=== PATIENT | female | born 1970 | race Asian ===

== ENCOUNTER → 2020-10-27 08:41 | Outpatient (BNVA) | payer OTHER, SELFPAY | PROVIDERS: Visit Provider Internal Medicine Endocrinology, Diabetes & Metabolism | DX: C73 Malignant neoplasm of thyroid gland (principal); E89.0 Postprocedural hypothyroidism; E55.9 Vitamin D deficiency, unspecified | CPT/HCPCS: 99212 ==

== ENCOUNTER 2020-10-27 10:01 | Outpatient (REF) | payer OTHER, SELFPAY ==
[2020-10-27 14:09] LABS: Free T4 (Free Thyroxine) 1.29 ng/dL (0.71-1.85); Thyroid Stimulating Hormone 0.17 uIU/mL (0.32-4.0); Vitamin D 25-OH Total 58.8 ng/mL (>30)
[2020-10-30 05:47] LABS: Thyroglobulin Antibody <1 IU/mL (<=1); Thyroglobulin Level 0.8 ng/mL
== END 2020-10-27 10:02 | disposition home or self-care (01) ==
LOC: HO.10HDL 10:01
PROVIDERS: Visit Provider Internal Medicine Endocrinology, Diabetes & Metabolism
DX: E55.9 Vitamin D deficiency, unspecified (principal); C73 Malignant neoplasm of thyroid gland
CPT/HCPCS: 36415; 82306; 84432; 84439; 84443; 86800

== ENCOUNTER 2020-11-06 15:00 | Outpatient (REF) | payer OTHER, SELFPAY ==
--- NOTE | ~2020-11-06 | US_ITS ---
EXAMINATION: US SOFT TISSUE NECK CLINICAL INFORMATION: Vitamin D deficiency, unspecified. History of papillary thyroid carcinoma with recurrence. COMPARISON: Ultrasound soft tissue neck dated 08/01/2018 and 10/24/2017. TECHNIQUE: Ultrasound of the neck soft tissues is performed with high- frequency chin-scale imaging and color Doppler. FINDINGS: THYROID BED: Prior thyroidectomy. No residual thyroid tissue demonstrated in the thyroid bed. No cystic or solid nodules demonstrated in the thyroid bed. RIGHT NECK SOFT TISSUES: Scattered architecturally normal nodes are present. The nodes show normal fatty hilus, normal cortical thickness, and no cystic change or calcification. No abnormal color flow. There is one right cervical lymph node.: Level 5B: 0.6 x 0.3 x 0.6 cm. New. Normal paulette architecture. LEFT NECK SOFT TISSUES: Scattered architecturally normal nodes are present. The nodes show normal fatty hilus, normal cortical thickness, and no cystic change or calcification. No abnormal color flow. There are 2 left cervical lymph nodes.: Level 3: 1 x 0.4 x 0.8 cm. This measured 1 x 0.4 x 0.6 cm December 2019. Normal paulette architecture. Level 3: 0.6 x 0.3 x 0.5 cm. New. Normal paulette architecture. US/US soft tiss head and/or neck IMPRESSION: Small bilateral cervical lymph nodes.
== END 2020-11-06 15:01 | disposition home or self-care (01) ==
LOC: HO.US 15:00
PROVIDERS: Visit Provider Internal Medicine Endocrinology, Diabetes & Metabolism
DX: C73 Malignant neoplasm of thyroid gland (principal); E89.0 Postprocedural hypothyroidism; E55.9 Vitamin D deficiency, unspecified
CPT/HCPCS: 76536

== ENCOUNTER → 2021-11-24 13:44 | Outpatient (BNVA) | payer OTHER, SELFPAY | PROVIDERS: Visit Provider Internal Medicine Endocrinology, Diabetes & Metabolism | DX: C73 Malignant neoplasm of thyroid gland (principal) | CPT/HCPCS: 99212 ==

== ENCOUNTER 2022-01-26 13:57 | Outpatient (REF) | payer OTHER, SELFPAY ==
--- NOTE | ~2022-01-26 | US_ITS ---
EXAMINATION: US SOFT TISSUE NECK CLINICAL INFORMATION: Nontoxic multinodular goiter. COMPARISON: None TECHNIQUE: Ultrasound of the neck soft tissues is performed with high- frequency chin-scale imaging and color Doppler. FINDINGS: THYROID BED: Prior thyroidectomy. No residual thyroid tissue demonstrated in the thyroid bed. No cystic or solid nodules demonstrated in the thyroid bed. RIGHT NECK SOFT TISSUES: Scattered architecturally normal nodes are present. The nodes show normal fatty hilus, normal cortical thickness, and no cystic change or calcification. No abnormal color flow. The largest nodes are as follows: Level 1B: 0.4 x 0.4 x 0.7 cm. Normal paulette architecture. Level 5A: 0.7 x 0.2 x 0.4 cm. There is no definite fatty hilum seen, but otherwise normal morphology. This is similar to previous. LEFT NECK SOFT TISSUES: Scattered architecturally normal nodes are present. The nodes show normal fatty hilus, normal cortical thickness, and no cystic change or calcification. No abnormal color flow. The largest nodes are as follows: Level 1B: 1.2 x 0.5 x 0.9 cm. Normal paulette architecture. Level 3: 1 x 0.5 x 0.6 cm. There is no definite fatty hilum seen. This is similar to the previous. US/US soft tiss head and/or neck IMPRESSION: 1. Multiple small bilateral cervical lymph nodes are identified. None of these are significantly concerning in appearance. 2. If clinically indicated further evaluation of the neck soft tissues and nodes may be performed with CT soft tissue neck with intravenous contrast.
[2022-01-26 16:17] LABS: Free T4 (Free Thyroxine) 1.58 ng/dL (0.71-1.85); Thyroid Stimulating Hormone < 0.01 uIU/mL (0.32-4.0)
[2022-01-28 05:43] LABS: Triiodothyronine T3 Free 4.4 pg/mL (2.3-4.2)
[2022-01-30 06:47] LABS: Thyroglobulin Antibody <1 IU/mL (<=1); Thyroglobulin Level 0.6 ng/mL
== END 2022-01-26 13:58 | disposition home or self-care (01) ==
LOC: HO.US 13:57
PROVIDERS: Visit Provider Internal Medicine Endocrinology, Diabetes & Metabolism
DX: E04.2 Nontoxic multinodular goiter (principal); C73 Malignant neoplasm of thyroid gland
CPT/HCPCS: 36415; 76536; 84432; 84439; 84443; 84481; 86800

== ENCOUNTER → 2022-06-15 13:58 | Outpatient (BNVA) | payer OTHER, SELFPAY | PROVIDERS: Visit Provider Internal Medicine Endocrinology, Diabetes & Metabolism | DX: C73 Malignant neoplasm of thyroid gland (principal); E89.0 Postprocedural hypothyroidism | CPT/HCPCS: 99212 ==

== ENCOUNTER 2023-04-14 13:47 | Outpatient (AMB) | payer OTHER, SELFPAY ==
--- NOTE | 2023-04-14 13:49 | MHC.OFFVIS ---
Intake Vital Signs 04/14/23 13:53 Height 5 ft 3 in Weight 156 lb 4.924 oz BMI 27.7 BP 110/82 Blood Pressure Location Lt brachial Position Sitting Pulse 102 H Pulse Source Pulse Oximeter Pulse Oximetry (%) 97 Intake Visit Reasons: Follow-up PTC Intake Note: Patient present for primary thyroid cancer follow up visit. Financial Sales Manager Required: Yes Financial Sales Manager Language: Urdu Financial Sales Manager Name: refusal form Promotions Team Leader: Promotions Team Leader Present Accompanied by: daughter Allergies No Known Allergies Allergy (Verified 04/14/23 13:54) Medication List - Last Reconciled 04/14/23 by Hansel Christian MD cholecalciferol (vitamin D3) 125 mcg PO DAILY levothyroxine 100 mcg PO DAILY HPI HPI Comments History of Present Illness Details 52 yo Urdu female today for fup visit, for recurrent PTC management She is feeling good. She denies palpitations, insomnia, anxiety. She denies diarrhea. She has been taking levothyroxine 100 ug Patient reports been 100% adherent with her levothyroxine. Has been taking vitamin-D every day as advised. 02/28/2019 TSH 113.5 (Thyrogen stimulated TG 4.1 ng per mL day 3 after thyrogen. Peak TG on 03/02 3.5 ng per mL, TSH 10.59 mIU/mL per Whole body scan 03/02/19 results were consistent with no evidence of iodine avid metastatic disease. No take in the neck either. Patient is present today with her daughter Lashay which is translating for us, the patient is not very fluent in Frisian. She was diagnosed with PTC on 2004 had total thyroidectomy on 2005, with M[facility]AND, she had second surgery on 2009 or and last surgery on 2013, she had first surgery by Dr Medina, second and [address] Lewis , She required bilateral extensive neck dissection, not clear which surgery . Denies palpitations, + tremors, denies diarrhea, denies nervousness, insomnia, weight stable, regular periods, (tubal ligation for contraception) rarely heat intolerance, sweating,. prior Records from Dr Lewis office received, as per his notes she had last surgery on 10/03/13 surgery was central compartment and left lateral neck selective dissection [address] were positive for cancer, this was consider recurrance, I dont have the documentation of initial and second surgery yet, still pending record from Dr Pat Welch's office. Prior records from [facility] reviewed, Patient had initial surgery on 11/08/05 followed by MCCLELLAND 102 mCi On 12/08/05 . She had stage 1 PTC multifocal largest tumor was 1.6 x 1.5 x 1.2 cm (T1, N1b, M0), she had recurrance in neck LN on 2008, had positive LN on level II and III. She had third neck dissection on 10/03/13, she had elveated TG on 06/01/13 TG 17 with negative antibodies, after TG went down to 3 with negative antibodies on 05/06/14. On 10/27/15 TG was 0.9 , antibodies negtive , TSH <0.02 miu/ml. Neck US 10/24/17 Status post bilateral thyroidectomy. There are 2 normal-sized lymph nodes in the left neck, submandibular region, measuring 0.9 x 0.4 x 0.6 cm and 0.6 x 0.3 x 0.5 cm. Neck US 08/01/18 No residual thyroid tissue is seen. There are some small lymph nodes present, 1 in the left submandibular area measuring 7 x 4 x 7 mm (previously 6 x 3 x 5 mm) and 1 in the left parotid region measuring 8 x 6 x 7 mm. It is a bit difficult to compare the current study with the previous exam as it does not appear that the parotid area was interrogated but 2 lymph nodes were measured at the time of the prior exam with the second node measuring 9 x 4 x 6 mm. No other nodes or masses are seen. NECK US 12/11/2019 RIGHT NECK SOFT TISSUES: Right neck soft tissues and nodes are as follows: Level 2: 0.8 x 0.4 x 0.6. Normal paulette architecture. LEFT NECK SOFT TISSUES: Left neck soft tissues and nodes are as follows: Level 3: 1 x 0.4 x 0.6. Normal paulette architecture. The previously identified lymph nodes in the left submandibular and parotid regions on July 2018 are not appreciated on the current exam. Laboratory Tests 11/21/19 11/21/19 13:54 13:54 25-OH Vitamin D To eric 61.9 Free T4 1.27 Thyroglobulin 0.9 H TSH 3rd Generation 0.[address] Valarie Pate at [facility] we did neck ultrasound and did not see an abnormal lymph nodes and suggested following thyroglobulin every 6 months [facility] Medical History (Updated 11/20/21 @ 10:36 by Sofia Faustin [facility]) Vitamin D deficiency Post-surgical hypothyroidism Primary thyroid cancer Surgical History (Updated 06/15/22 @ 14:13 by Gema Navas Neelima) H/O radioactive iodine thyroid ablation Hx of total thyroidectomy History of radical neck dissection Family History Father No problems noted. Mother No problems noted. Paternal Grandmother Thyroid cancer Social History Household Members: Family and Children Alcohol intake: current Alcohol intake frequency: does not drink Patient Tobacco Use Status: Never used Tobacco Physical Exam Const Other: There is a healed scar status post thyroidectomy. There is no cervical adenopathy palpated Assessment & Plan Assessment & Plan (1) Primary thyroid cancer: Code(s): C73 - Malignant neoplasm of thyroid gland Plan: This is a 52-year-old female with a history of metastatic papillary thyroid cancer status post total thyroidectomy and subsequent bilateral neck dissection with persistent thyroglobulin which has remained somewhat stable. She is currently on levothyroxine 100 mcg . She appears to be clinically euthyroid. Plan is to recheck TSH, free T4, free T3 adjust levothyroxine . The goal would be to keep the TSH between 0.1 and 0.4. I had discussion with the patient and her son and we decided to make a referral to Dr. Pate in [place] in light of the persistent thyroglobulin Orders: Orders Free T4 (Free Thyroxine) Today C73 - Malignant neoplasm of thyroid gland Thyroid Stimulating Hormone Today C73 - Malignant neoplasm of thyroid gland Thyroglobulin Tumor Marker Today C73 - Malignant neoplasm of thyroid gland Coding Level of Care Code Est Pt Level 3 (11882) Diagnoses Primary thyroid cancer C73
[2023-04-14 13:53] VITALS: BP 110/82; PULSE 102; O2SAT 97; BMI 27.7
== END 2023-04-14 14:05 | disposition home or self-care (01) ==
PROVIDERS: Visit Provider Internal Medicine Endocrinology, Diabetes & Metabolism
DX: C73 Malignant neoplasm of thyroid gland (principal)
CPT/HCPCS: 99213

== ENCOUNTER 2023-04-14 13:47 | Outpatient (REF) | payer OTHER, SELFPAY ==
[2023-04-14 15:17] LABS: Thyroid Stimulating Hormone 0.47 uIU/mL (0.32-4.0)
[2023-04-17 04:33] LABS: Thyroglobulin Antibody <1 IU/mL (<=1); Thyroglobulin Level 0.6 ng/mL
== END 2023-04-14 13:48 | disposition home or self-care (01) ==
LOC: HO.LAB 13:47
PROVIDERS: Visit Provider Internal Medicine Endocrinology, Diabetes & Metabolism
DX: C73 Malignant neoplasm of thyroid gland (principal); E89.0 Postprocedural hypothyroidism; Z79.899 Other long term (current) drug therapy
CPT/HCPCS: 36415; 84432; 84439; 84443; 86800; 99212

== ENCOUNTER 2023-07-14 07:51 | Outpatient (REF) | payer OTHER, SELFPAY ==
[2023-07-14 09:44] LABS: Free T4 (Free Thyroxine) 0.89 ng/dL (0.71-1.85); Thyroid Stimulating Hormone 1.68 uIU/mL (0.32-4.0)
[2023-07-20 05:39] LABS: Thyroglobulin Antibody <1 IU/mL (<=1); Thyroglobulin Level 0.3 ng/mL
== END 2023-07-14 07:52 | disposition home or self-care (01) ==
LOC: HO.LAB 07:51
PROVIDERS: Visit Provider Internal Medicine Endocrinology, Diabetes & Metabolism
DX: C73 Malignant neoplasm of thyroid gland (principal); Z79.899 Other long term (current) drug therapy
CPT/HCPCS: 36415; 84432; 84439; 84443; 86800; 99212

== ENCOUNTER 2023-07-14 07:51 | Outpatient (AMB) | payer OTHER, SELFPAY ==
--- NOTE | 2023-07-14 07:53 | MHC.OFFVIS ---
Intake Vital Signs 07/14/23 07:56 Height 5 ft 3 in Weight 158 lb 1.143 oz BMI 28.0 BP 134/80 Blood Pressure Location Lt brachial Position Sitting Pulse 89 Pulse Source Pulse Oximeter Intake Visit Reasons: f/u thyroid cancer/CONFIRMED Intake Note: Patient present for Thyroid follow up visit. Housekeeping Aid Required: No Accompanied by: Self / Same As Patient Allergies No Known Allergies Allergy (Verified 07/14/23 07:59) Medication List - Last Reconciled 07/14/23 by Hansel Chrsitian MD cholecalciferol (vitamin D3) 125 mcg PO DAILY levothyroxine 100 mcg PO DAILY HPI HPI Comments History of Present Illness Details 53 yo Colombian female today for fup visit, for recurrent PTC management She is feeling good. She denies palpitations, insomnia, anxiety. She denies diarrhea. She has been taking levothyroxine 100 ug Patient reports been 100% adherent with her levothyroxine. Has been taking vitamin-D every day as advised. 02/28/2019 TSH 113.5 (Thyrogen stimulated TG 4.1 ng per mL day 3 after thyrogen. Peak TG on 03/02 3.5 ng per mL, TSH 10.59 mIU/mL per Whole body scan 03/02/19 results were consistent with no evidence of iodine avid metastatic disease. No take in the neck either. Patient is present today with her daughter Lashay which is translating for us, the patient is not very fluent in Urdu. She was diagnosed with PTC on 2004 had total thyroidectomy on 2005, with [facility], she had second surgery on 2009 or and last surgery on 2013, she had first surgery by Dr Medina, second and [address] Lewis , She required bilateral extensive neck dissection, not clear which surgery . Denies palpitations, + tremors, denies diarrhea, denies nervousness, insomnia, weight stable, regular periods, (tubal ligation for contraception) rarely heat intolerance, sweating,. prior Records from Dr Lewis office received, as per his notes she had last surgery on 10/03/13 surgery was central compartment and left lateral neck selective dissection [address] were positive for cancer, this was consider recurrance, I dont have the documentation of initial and second surgery yet, still pending record from Dr Pat Welch's office. Prior records from [facility] reviewed, Patient had initial surgery on 11/08/05 followed by MCCLELLAND 102 mCi On 12/08/05 . She had stage 1 PTC multifocal largest tumor was 1.6 x 1.5 x 1.2 cm (T1, N1b, M0), she had recurrance in neck LN on 2008, had positive LN on level II and III. She had third neck dissection on 10/03/13, she had elveated TG on 06/01/13 TG 17 with negative antibodies, after TG went down to 3 with negative antibodies on 05/06/14. On 10/27/15 TG was 0.9 , antibodies negtive , TSH <0.02 miu/ml. Neck US 10/24/17 Status post bilateral thyroidectomy. There are 2 normal-sized lymph nodes in the left neck, submandibular region, measuring 0.9 x 0.4 x 0.6 cm and 0.6 x 0.3 x 0.5 cm. Neck US 08/01/18 No residual thyroid tissue is seen. There are some small lymph nodes present, 1 in the left submandibular area measuring 7 x 4 x 7 mm (previously 6 x 3 x 5 mm) and 1 in the left parotid region measuring 8 x 6 x 7 mm. It is a bit difficult to compare the current study with the previous exam as it does not appear that the parotid area was interrogated but 2 lymph nodes were measured at the time of the prior exam with the second node measuring 9 x 4 x 6 mm. No other nodes or masses are seen. NECK US 12/11/2019 RIGHT NECK SOFT TISSUES: Right neck soft tissues and nodes are as follows: Level 2: 0.8 x 0.4 x 0.6. Normal paulette architecture. LEFT NECK SOFT TISSUES: Left neck soft tissues and nodes are as follows: Level 3: 1 x 0.4 x 0.6. Normal paulette architecture. The previously identified lymph nodes in the left submandibular and parotid regions on July 2018 are not appreciated on the current exam. Laboratory Tests 11/21/19 11/21/19 13:54 13:54 25-OH Vitamin D To eric 61.9 Free T4 1.27 Thyroglobulin 0.9 H TSH 3rd Generation 0.[address] Valarie Pate at [facility] we did neck ultrasound and did not see an abnormal lymph nodes and suggested following thyroglobulin every 6 months [facility] Medical History (Updated 11/20/21 @ 10:36 by Sofia Faustin [facility]) Vitamin D deficiency Post-surgical hypothyroidism Primary thyroid cancer Surgical History H/O radioactive iodine thyroid ablation Hx of total thyroidectomy History of radical neck dissection Family History Father No problems noted. Mother No problems noted. Paternal Grandmother Thyroid cancer Social History Household Members: Family and Children Alcohol intake: current Alcohol intake frequency: does not drink Patient Tobacco Use Status: Never used Tobacco Physical Exam Vital Signs: Last Vital Signs Pulse 89 07/14/23 07:56 BP 134/80 07/14/23 07:56 BMI result Body Mass Index 28.0 Assessment & Plan Assessment & Plan (1) Primary thyroid cancer: Code(s): C73 - Malignant neoplasm of thyroid gland Plan: This is a 53-year-old female with a history of metastatic papillary thyroid cancer status post total thyroidectomy and subsequent bilateral neck dissection with persistent thyroglobulin which has remained somewhat stable. She is currently on levothyroxine 100 mcg . She appears to be clinically euthyroid. Plan is to recheck TSH, free T4, adjust levothyroxine . We will also recheck thyroglobulin. As well as thyroglobulin antibodies. Would keep TSH in the low normal range. Will have patient follow up with Dr. Pate Orders: Orders Thyroglobulin Tumor Marker Today C73 - Malignant neoplasm of thyroid gland Coding Level of Care Code Est Pt Level 3 (23929) Diagnoses Primary thyroid cancer C73
[2023-07-14 07:56] VITALS: BP 134/80; PULSE 89; BMI 28.0
== END 2023-07-14 08:10 | disposition home or self-care (01) ==
PROVIDERS: PCP Internal Medicine; Visit Provider Internal Medicine Endocrinology, Diabetes & Metabolism
DX: C73 Malignant neoplasm of thyroid gland (principal)
CPT/HCPCS: 99213

== ENCOUNTER 2024-07-31 14:43 | Outpatient (AMB) | payer OTHER, SELFPAY ==
--- NOTE | 2024-07-31 14:54 | A.OFFVIS_ITS ---
Vital Signs 07/31/24 14:55 Height 5 ft 3 in Weight 163 lb 12.855 oz BMI 29.0 BP 106/62 Blood Pressure Location Rt brachial Position Sitting Pulse 82 Pulse Source Pulse Oximeter Intake Visit Reasons: Thyroid cancer Intake Note: Patient present today for Thyroid Cancer follow up. Publications Sales Representative Required: Yes Publications Sales Representative Language: Kyrgyz Publications Sales Representative Services: Publications Sales Representative Offered & Declined Publications Sales Representative Name: Son will interpret Information Interpreted: non-clinical & clinical Accompanied by: Son Allergies No Known Allergies Allergy (Verified 07/31/24 14:58) Medication List - Last Reconciled 07/31/24 by Hansel Christian MD cholecalciferol (vitamin D3) 125 mcg PO DAILY levothyroxine 100 mcg PO DAILY HPI Comments Details: 54 yo Kyrgy[place] female today for fup visit, for recurrent PTC management She is feeling good. She denies palpitations, insomnia, anxiety. She denies diarrhea. She has been taking levothyroxine 100 ug Patient reports been 100% adherent with her levothyroxine. Has been taking vitamin-D every day as advised. 02/28/2019 TSH 113.5 (Thyrogen stimulated TG 4.1 ng per mL day 3 after thyrogen. Peak TG on 03/02 3.5 ng per mL, TSH 10.59 mIU/mL per Whole body scan 03/02/19 results were consistent with no evidence of iodine avid metastatic disease. No take in the neck either. Patient is present today with her daughter Lashay which is translating for us, the patient is not very fluent in Bengali. She was diagnosed with PTC on 2004 had total thyroidectomy on 2005, with [facility]AND, she had second surgery on 2009 or and last surgery on 2013, she had first surgery by Dr Medina, second and [address] Lewis , She required bilateral extensive neck dissection, not clear which surgery . Denies palpitations, + tremors, denies diarrhea, denies nervousness, insomnia, weight stable, regular periods, (tubal ligation for contraception) rarely heat intolerance, sweating,. prior Records from Dr Lewis office received, as per his notes she had last surgery on 10/03/13 surgery was central compartment and left lateral neck selective dissection [address] were positive for cancer, this was consider recurrance, I dont have the documentation of initial and second surgery yet, still pending record from Dr Pat Welch's office. Prior records from [facility] reviewed, Patient had initial surgery on 11/08/05 followed by MCCLELLAND 102 mCi On 12/08/05 . She had stage 1 PTC multifocal largest tumor was 1.6 x 1.5 x 1.2 cm (T1, N1b, M0), she had recurrance in neck LN on 2008, had positive LN on level II and III. She had third neck dissection on 10/03/13, she had elveated TG on 06/01/13 TG 17 with negative antibodies, after TG went down to 3 with negative antibodies on 05/06/14. On 10/27/15 TG was 0.9 , antibodies negtive , TSH <0.02 miu/ml. Neck US 10/24/17 Status post bilateral thyroidectomy. There are 2 normal-sized lymph nodes in the left neck, submandibular region, measuring 0.9 x 0.4 x 0.6 cm and 0.6 x 0.3 x 0.5 cm. Neck US 08/01/18 No residual thyroid tissue is seen. There are some small lymph nodes present, 1 in the left submandibular area measuring 7 x 4 x 7 mm (previously 6 x 3 x 5 mm) and 1 in the left parotid region measuring 8 x 6 x 7 mm. It is a bit difficult to compare the current study with the previous exam as it does not appear that the parotid area was interrogated but 2 lymph nodes were measured at the time of the prior exam with the second node measuring 9 x 4 x 6 mm. No other nodes or masses are seen. NECK US 12/11/2019 RIGHT NECK SOFT TISSUES: Right neck soft tissues and nodes are as follows: Level 2: 0.8 x 0.4 x 0.6. Normal paulette architecture. LEFT NECK SOFT TISSUES: Left neck soft tissues and nodes are as follows: Level 3: 1 x 0.4 x 0.6. Normal paulette architecture. The previously identified lymph nodes in the left submandibular and parotid regions on July 2018 are not appreciated on the current exam. Laboratory Tests 11/21/19 11/21/19 13:54 13:54 25-OH Vitamin D Total 61.9 Free T4 1.27 Thyroglobulin 0.9 H TSH 3rd Generation 0.[address] Valarie Pate at [facility] we did neck ultrasound and did not see an abnormal lymph nodes and suggested following thyroglobulin every 6 months. Currently on levothyroxine 100 mcg q.d. [facility] Medical History (Updated 11/20/21 @ 10:36 by Sofia Faustin [facility]) Vitamin D deficiency Post-surgical hypothyroidism Primary thyroid cancer Surgical History H/O radioactive iodine thyroid ablation Hx of total thyroidectomy History of radical neck dissection Family History Father No problems noted. Mother No problems noted. Paternal Grandmother Thyroid cancer Social History Household Members: Family and Children Alcohol intake: current Alcohol intake frequency: does not drink Patient Tobacco Use Status: Never used Tobacco Physical Exam Vital Signs: Last Vital Signs Pulse 82 07/31/24 14:55 BP 106/62 07/31/24 14:55 BMI result Body Mass Index 29.0 Const Other: There is a healed scar status post thyroidectomy. There is no cervical adenopathy palpated Assessment & Plan Assessment & Plan (1) Primary thyroid cancer: Code(s): C73 - Malignant neoplasm of thyroid gland Category: Medical Plan: This is a 53-year-old female with a history of metastatic papillary thyroid cancer status post total thyroidectomy and subsequent bilateral neck dissection with persistent thyroglobulin which has remained somewhat stable. She is currently on levothyroxine 100 mcg . She appears to be clinically and biochemically euthyroid. Plan is to continue the current management. We will have patient follow up with Dr. Brown an mountain bike guide in our practice who has expertise in neck ultrasound Medications: Refilled cholecalciferol (vitamin D3) 125 mcg PO DAILY 30 caps 11RF E55.9 - Vitamin D deficiency, unspecified Coding Level of Care Code Est Pt Level 3 (13274) Diagnoses Primary thyroid cancer C73
[2024-07-31 14:55] VITALS: BP 106/62; PULSE 82; BMI 29.0
== END 2024-07-31 15:13 | disposition home or self-care (01) ==
PROVIDERS: PCP Internal Medicine; Visit Provider Internal Medicine Endocrinology, Diabetes & Metabolism
DX: C73 Malignant neoplasm of thyroid gland (principal)
CPT/HCPCS: 99213

== ENCOUNTER → 2024-07-31 14:43 | Outpatient (BNVA) | payer OTHER, SELFPAY | PROVIDERS: PCP Internal Medicine; Visit Provider Internal Medicine Endocrinology, Diabetes & Metabolism | DX: C73 Malignant neoplasm of thyroid gland (principal); E55.9 Vitamin D deficiency, unspecified | CPT/HCPCS: 99212 ==

== ENCOUNTER 2024-12-31 08:34 | Outpatient (AMB) | payer MEDICAID, SELFPAY ==
[2024-12-31 08:36] VITALS: BP 122/86; PULSE 100; O2SAT 97; BMI 29.1
--- NOTE | 2024-12-31 08:36 | MHC.OFFVIS ---
Vital Signs 12/31/24 08:36 Height 5 ft 3 in Weight 164 lb 0.383 oz BMI 29.1 BP 122/86 Blood Pressure Location Lt brachial Position Sitting Pulse 100 Pulse Source Pulse Oximeter Pulse Oximetry (%) 97 Oxygen Delivery Method Room Air Intake Visit Reasons: f/u thyroid cancer Intake Note: Patient present today for thyroid cancer follow up visit. Allergies No Known Allergies Allergy (Verified 12/31/24 08:39) Medication List - Last Reconciled 12/31/24 by Isa Brown MD cholecalciferol (vitamin D3) 125 mcg PO DAILY levothyroxine 100 mcg PO DAILY HPI Comments Details: 54 yo [place] female today for fup visit, for history of PTC status post total thyroidectomy 2005 with pathology showing multifocal PTC largest tumor 1.6 X1.5 X1.2 cm, AJCC stage I T1 N1b M0, no further details given of pathology, can not determine VIDA initial risk of recurrence, status post 102 mCi of MCCLELLAND 12/08/2005, with a recurrence in neck lymph node in 2008 with positive lymph node in level 2 and 3. status post 2nd surgery for recurrent PTC management , and then another neck dissection 10/03/2013 with central compartment and left lateral neck selective dissection 8 of 22 lymph nodes were positive for cancer, with postsurgical hypothyroidism, now coming in for follow up. Here today with son who is translating for us, the patient is not very fluent in [place]. History of PTC in detail 11/08/2005: Total thyroidectomy with Dr. YE, with pathology showing multifocal PTC largest tumor 1.6 X1.5 X1.2 cm, AJCC stage I T1 N1b M0, no further details given of pathology, can not determine VIDA initial risk of recurrence, 12/08/2005: Status post 102 mCi of M[place]AND treatment 2008: Positive recurrence in lymph node in level 2 and 3 : 2nd surgery for recurrent PTC management with Dr. Olson 06/01/13: she had elveated TG on 06/01/13 TG 17 with negative antibodies, 10/03/2013: Central compartment and left lateral neck selective dissection 8 of [address] Jennifer Lewis at [facility] 05/06/14:after TG went down to 3 with negative antibodies On 10/27/15 TG was 0.9 , antibodies negtive , TSH <0.02 miu/ml. 03/02/2019: Whole-body scan consistent with no evidence of iodine avid metastatic disease, no uptake in the neck either. 02/28/2019: TSH 113.5 with Thyrogen stimulation, TG 4.1 ng/mL day 3 after Thyrogen Peak TG on 03/02 3.5 ng per mL, TSH 10.59 mIU/mL per 11/21/2019: TSH 0.14, free T4 1.27, TG 0.9 11/06/2020: Ultrasound of the neck showed bilateral normal-appearing lymph nodes 01/26/2022: TG 0.6, TG antibody less than 1, TSH less than 0.01 01/26/2022: Ultrasound of the neck showed bilateral normal-appearing lymph nodes. 09/29/2022: Labs at [facility]: TG antibody less than 0.4, TG 0.58, TSH 0.46, free T4 1.24. 09/29/2022: Saw Dr. Pate at [facility] who did an office ultrasound of the neck which did not show any abnormal masses in the neck. 07/14/2023: TSH 1.68, free T4 0.89, TG 0.3, TG antibody less than 1 Interval history She is feeling good. She denies palpitations, insomnia, anxiety. She denies diarrhea. She has been taking levothyroxine 100 ug Patient reports been 100% adherent with her levothyroxine. No recent TFTs in the chart. Physical exam General: sitting comfortably in no acute distress HEENT: normocephalic/atraumatic, moist oral mucosa Neck: supple, symmetrical, Cardiac: normal heart sounds Pulm: normal breath sounds B/L, no added breath sounds Abd: not distended, no tenderness Extremities: no edema, no signs of myxedema Laboratory Tests 11/06/18 03/02/19 05/25/19 15:40 08:33 12:40 Free T4 1.43 1.29 TSH Thyroglobulin 0.8 H 3.5 H 0.4 H Thyroglobulin Antibody <1 <1 <1 11/21/19 10/27/20 01/26/22 13:54 10:08 14:57 Free T4 1.27 1.29 1.58 TSH 0.17 L < 0.01 L Thyroglobulin 0.9 H 0.8 H 0.6 H Thyroglobulin Antibody <1 <1 <1 04/14/23 07/14/23 14:22 08:31 Free T4 1.00 0.89 TSH 0.47 1.68 Thyroglobulin 0.6 H 0.3 H Thyroglobulin Antibody <1 <1 US SOFT TISSUE NECK 01/26/22 CLINICAL INFORMATION: Nontoxic multinodular goiter. COMPARISON: None TECHNIQUE: Ultrasound of the neck soft tissues is performed with high- frequency chin-scale imaging and color Doppler. FINDINGS: THYROID BED: Prior thyroidectomy. No residual thyroid tissue demonstrated in the thyroid bed. No cystic or solid nodules demonstrated in the thyroid bed. RIGHT NECK SOFT TISSUES: Scattered architecturally normal nodes are present. The nodes show normal fatty hilus, normal cortical thickness, and no cystic change or calcification. No abnormal color flow. The largest nodes are as follows: Level 1B: 0.4 x 0.4 x 0.7 cm. Normal paulette architecture. Level 5A: 0.7 x 0.2 x 0.4 cm. There is no definite fatty hilum seen, but otherwise normal morphology. This is similar to previous. LEFT NECK SOFT TISSUES: Scattered architecturally normal nodes are present. The nodes show normal fatty hilus, normal cortical thickness, and no cystic change or calcification. No abnormal color flow. The largest nodes are as follows: Level 1B: 1.2 x 0.5 x 0.9 cm. Normal paulette architecture. Level 3: 1 x 0.5 x 0.6 cm. There is no definite fatty hilum seen. This is similar to the previous. US/US soft tiss head and/or neck IMPRESSION: 1. Multiple small bilateral cervical lymph nodes are identified. None of these are significantly concerning in appearance. 2. If clinically indicated further evaluation of the neck soft tissues and nodes may be performed with CT soft tissue neck with intravenous contrast. US SOFT TISSUE NECK 11/06/20 CLINICAL INFORMATION: Vitamin D deficiency, unspecified. History of papillary thyroid carcinoma with recurrence. COMPARISON: Ultrasound soft tissue neck dated 08/01/2018 and 10/24/2017. TECHNIQUE: Ultrasound of the neck soft tissues is performed with high- frequency chin-scale imaging and color Doppler. FINDINGS: THYROID BED: Prior thyroidectomy. No residual thyroid tissue demonstrated in the thyroid bed. No cystic or solid nodules demonstrated in the thyroid bed. RIGHT NECK SOFT TISSUES: Scattered architecturally normal nodes are present. The nodes show normal fatty hilus, normal cortical thickness, and no cystic change or calcification. No abnormal color flow. There is one right cervical lymph node.: Level 5B: 0.6 x 0.3 x 0.6 cm. New. Normal paulette architecture. LEFT NECK SOFT TISSUES: Scattered architecturally normal nodes are present. The nodes show normal fatty hilus, normal cortical thickness, and no cystic change or calcification. No abnormal color flow. There are 2 left cervical lymph nodes.: Level 3: 1 x 0.4 x 0.8 cm. This measured 1 x 0.4 x 0.6 cm December 2019. Normal paulette architecture. Level 3: 0.6 x 0.3 x 0.5 cm. New. Normal paulette architecture. US/US soft tiss head and/or neck IMPRESSION: Small bilateral cervical lymph nodes. Neck US 10/24/17 Status post bilateral thyroidectomy. There are 2 normal-sized lymph nodes in the left neck, submandibular region, measuring 0.9 x 0.4 x 0.6 cm and 0.6 x 0.3 x 0.5 cm. Neck US 08/01/18 No residual thyroid tissue is seen. There are some small lymph nodes present, 1 in the left submandibular area measuring 7 x 4 x 7 mm (previously 6 x 3 x 5 mm) and 1 in the left parotid region measuring 8 x 6 x 7 mm. It is a bit difficult to compare the current study with the previous exam as it does not appear that the parotid area was interrogated but 2 lymph nodes were measured at the time of the prior exam with the second node measuring 9 x 4 x 6 mm. No other nodes or masses are seen. NECK US 12/11/2019 RIGHT NECK SOFT TISSUES: Right neck soft tissues and nodes are as follows: Level 2: 0.8 x 0.4 x 0.6. Normal paulette architecture. LEFT NECK SOFT TISSUES: Left neck soft tissues and nodes are as follows: Level 3: 1 x 0.4 x 0.6. Normal paulette architecture. The previously identified lymph nodes in the left submandibular and parotid regions on July 2018 are not appreciated on the current exam. [facility] Medical History (Updated 11/20/21 @ 10:36 by BENNY Chowdary) Vitamin D deficiency Post-surgical hypothyroidism Primary thyroid cancer Surgical History H/O radioactive iodine thyroid ablation Hx of total thyroidectomy History of radical neck dissection Family History Father No problems noted. Mother No problems noted. Paternal Grandmother Thyroid cancer Social History Household Members: Family and Children Alcohol intake: current Alcohol intake frequency: does not drink Patient Tobacco Use Status: Never used Tobacco Physical Exam Vital Signs: Last Vital Signs Pulse 100 12/31/24 08:36 BP 122/86 12/31/24 08:36 Pulse Ox 97 12/31/24 08:36 Oxygen Delivery Method Room Air 12/31/24 08:36 BMI result Body Mass Index 29.1 Assessment & Plan Assessment & Plan (1) Primary thyroid cancer: Code(s): C73 - Malignant neoplasm of thyroid gland Category: Medical Plan: 54-year-old female coming in today for follow up of history of PTC status post total thyroidectomy 2005 with pathology showing multifocal PTC largest tumor 1.6 X1.5 X1.2 cm, AJCC stage I T1 N1b M0, no further details given of pathology, can not determine VIDA initial risk of recurrence, status post 102 mCi of [place] 12/08/2005, with a recurrence in neck lymph node in 2008 with positive lymph node in level 2 and 3. status post 2nd surgery for recurrent PTC management , and then another neck dissection 10/03/2013 with central compartment and left lateral neck selective dissection 8 of 22 lymph nodes were positive for cancer, with postsurgical hypothyroidism, now coming in for follow up. Based on her TG levels which have remained stable, and trended down from 0.6 in 2021 to 0.3 in 2023, she probably has small volume non progressive disease as noted by [facility] as well. At this point we will keep an eye on her thyroglobulin levels. We will also plan to do in a neck ultrasound now. Last ultrasound of the neck was done in 2022 at [facility] with a in office ultrasound showing no abnormal lymph nodes. We should try to keep her TSH level closer to 0.5. Plan: -continue levothyroxine 100 mcg daily -do ultrasound of the neck -ordered TSH, free T4, TG and TG antibody levels with follow up to discuss results, she is going on vacation for most of February and March and we will be back in March (2) Post-surgical hypothyroidism: Code(s): E89.0 - Postprocedural hypothyroidism Category: Medical Plan: We should try to keep her TSH level closer to 0.5. Plan: -continue levothyroxine 100 mcg daily -ordered TSH and free T4 to be done now Plan I spent 30 minutes in reviewing the record, seeing the patient and documenting in the medical record. Orders: Orders US soft tiss head and/or neck Today C73 - Malignant neoplasm of thyroid gland, E89.0 - Postprocedural hypothyroidism Free T4 (Free Thyroxine) Today C73 - Malignant neoplasm of thyroid gland, E89.0 - Postprocedural hypothyroidism Thyroglobulin Antibodies Today C73 - Malignant neoplasm of thyroid gland, E89.0 - Postprocedural hypothyroidism Thyroglobulin Tumor Marker Today C73 - Malignant neoplasm of thyroid gland, E89.0 - Postprocedural hypothyroidism Thyroglobulin Today C73 - Malignant neoplasm of thyroid gland, E89.0 - Postprocedural hypothyroidism Thyroid Stimulating Hormone Today C73 - Malignant neoplasm of thyroid gland, E89.0 - Postprocedural hypothyroidism Patient Instructions: Do blood work today Do ultrasound of the neck ,someone will call you to schedule this Coding Level of Care Code Est Pt Level 4 (92479) Complex EM visit Add On G2211 Diagnoses Primary thyroid cancer C73 Post-surgical hypothyroidism E89.0 Time Spent (min) 30
== END 2024-12-31 09:08 | disposition home or self-care (01) ==
LOC: HO.ENCR 08:34
PROVIDERS: PCP Internal Medicine; Visit Provider Student in an Organized Health Care Education/Training Program
DX: C73 Malignant neoplasm of thyroid gland (principal); E89.0 Postprocedural hypothyroidism
CPT/HCPCS: 99214

== ENCOUNTER 2024-12-31 08:34 | Outpatient (REF) | payer MEDICAID, SELFPAY ==
[2024-12-31 11:00] LABS: Free T4 (Free Thyroxine) 1.26 ng/dL (0.71-1.85)
[2025-01-01 18:43] LABS: Thyroglobulin 0.5 ng/mL; Thyroglobulin Antibodies <1 IU/mL (< or = 1)
[2025-01-03 04:19] LABS: Thyroglobulin Antibody 3 IU/mL (<=1)
[2025-01-12 04:23] LABS: Thyroglobulin LC/MS/MS <0.4 ng/mL (Athyrotic: <0)
== END 2024-12-31 08:35 | disposition home or self-care (01) ==
LOC: HO.LAB 08:34
PROVIDERS: PCP Internal Medicine; Visit Provider Student in an Organized Health Care Education/Training Program
DX: C73 Malignant neoplasm of thyroid gland (principal); E89.0 Postprocedural hypothyroidism
CPT/HCPCS: 36415; 84432; 84439; 84443; 86800; 99212

== ENCOUNTER 2025-01-16 10:22 | Outpatient (REF) | payer MEDICAID, SELFPAY ==
--- NOTE | ~2025-01-16 | US_ITS ---
EXAMINATION: US THYROID CLINICAL INFORMATION: Thyroidectomy, history of thyroid CA. COMPARISON: 01/26/2022, 11/06/2020. TECHNIQUE: Linear transducer chin-scale and color Doppler examination with attention to the region of the thyroid. FINDINGS: THYROID BED: Prior thyroidectomy. No residual thyroid tissue demonstrated in the thyroid bed. No cystic or solid nodules demonstrated in the thyroid bed. RIGHT NECK SOFT TISSUES: Scattered architecturally normal nodes are present. The nodes show normal fatty hilus, normal cortical thickness, and no cystic change or calcification. No abnormal color flow. The largest nodes are as follows: Level 5B: 0.9 x 0.4 x 0.7 cm. Normal paulette architecture. No significant interval change. Level 5A: 2.0 x 0.5 x 1.1 cm. Normal paulette architecture. This is new from prior. Level 5B: 1.0 x 0.6 x 1.0 cm. Normal paulette architecture. This is new from prior. LEFT NECK SOFT TISSUES: Scattered architecturally normal nodes are present. The nodes show normal fatty hilus, normal cortical thickness, and no cystic change or calcification. No abnormal color flow. The largest nodes are as follows: Level 2: 1.2 x 0.5 x 0.9 cm. There is no definite fatty hilum seen. No significant interval change. Level 2: 1.1 x 0.5 x 0.7 cm. There is no definite fatty hilum seen. No significant interval change. Level 2: 0.7 x 0.2 x 0.6 cm. There is no definite fatty hilum seen. No significant interval change. US/US soft tiss head and/or neck IMPRESSION: 1. No abnormality in the thyroid bed. 2. Multiple bilateral small cervical lymph nodes identified, quite similar in appearance to the prior examination from 2021, and consistent with reactive etiology. Stable appearance of left level 2 lymph nodes as discussed. None of these are significantly concerning in appearance. Electronically signed by: Teo Bravo MD 01/16/2025 12:05 PM EDT
== END 2025-01-16 10:23 | disposition home or self-care (01) ==
LOC: HO.HMGCX 10:22
PROVIDERS: Visit Provider Student in an Organized Health Care Education/Training Program
DX: E89.0 Postprocedural hypothyroidism (principal); C73 Malignant neoplasm of thyroid gland
CPT/HCPCS: 76536

== ENCOUNTER → 2025-01-16 10:25 | Outpatient (BNV) | payer MEDICAID, SELFPAY | PROVIDERS: Visit Provider Radiology Diagnostic Radiology | DX: R59.0 Localized enlarged lymph nodes (principal) | CPT/HCPCS: 76536 ==

== ENCOUNTER 2025-04-01 08:23 | Outpatient (AMB) | payer MEDICAID, SELFPAY ==
--- NOTE | 2025-04-01 08:25 | A.OFFVIS_ITS ---
Vital Signs 3 04/01/25 08:26 Height 5 ft 3 in Weight 165 lb 2.02 oz BMI 29.2 BP 126/86 Blood Pressure Location Rt brachial Position Sitting Pulse 73 Pulse Source Pulse Oximeter Pulse Oximetry (%) 97 Oxygen Delivery Method Room Air Intake Visit Reasons: f/u thyroid cancer Intake Note: Patient present today for thyroid cancer follow up visit. Agency Service Coordinator Required: No Accompanied by: Son Allergies No Known Allergies Allergy (Verified 04/01/25 08:27) HPI Comments Details: 54 yo [place] female today for fup visit, for history of PTC status post total thyroidectomy 2005 with pathology showing multifocal PTC largest tumor 1.6 X1.5 X1.2 cm, AJCC stage I T1 N1b M0, no further details given of pathology, can not determine VIDA initial risk of recurrence, status post 102 mCi of MCCLELLAND 12/08/2005, with a recurrence in neck lymph node in 2008 with positive lymph node in level 2 and 3. status post 2nd surgery for recurrent PTC management , and then another neck dissection 10/03/2013 with central compartment and left lateral neck selective dissection 8 of 22 lymph nodes were positive for cancer, with postsurgical hypothyroidism, now coming in for follow up. Here today with son who is translating for us, the patient is not very fluent in Faroese. History of PTC in detail 11/08/2005: Total thyroidectomy with Dr. YE, with pathology showing multifocal PTC largest tumor 1.6 X1.5 X1.2 cm, AJCC stage I T1 N1b M0, no further details given of pathology, can not determine VIDA initial risk of recurrence, 12/08/2005: Status post 102 mCi of M[place]AND treatment 2008: Positive recurrence in lymph node in level 2 and 3 : 2nd surgery for recurrent PTC management with Dr. Olson 06/01/13: she had elveated TG on 06/01/13 TG 17 with negative antibodies, 10/03/2013: Central compartment and left lateral neck selective dissection 8 of [address] Jennifer Lewis at [facility] 05/06/14:after TG went down to 3 with negative antibodies On 10/27/15 TG was 0.9 , antibodies negtive , TSH <0.02 miu/ml. 03/02/2019: Whole-body scan consistent with no evidence of iodine avid metastatic disease, no uptake in the neck either. 02/28/2019: TSH 113.5 with Thyrogen stimulation, TG 4.1 ng/mL day 3 after Thyrogen Peak TG on 03/02 3.5 ng per mL, TSH 10.59 mIU/mL per 11/21/2019: TSH 0.14, free T4 1.27, TG 0.9 11/06/2020: Ultrasound of the neck showed bilateral normal-appearing lymph nodes 01/26/2022: TG 0.6, TG antibody less than 1, TSH less than 0.01 01/26/2022: Ultrasound of the neck showed bilateral normal-appearing lymph nodes. 09/29/2022: Labs at [facility]: TG antibody less than 0.4, TG 0.58, TSH 0.46, free T4 1.24. 09/29/2022: Saw Dr. Pate at [facility] who did an office ultrasound of the neck which did not show any abnormal masses in the neck. 07/14/2023: TSH 1.68, free T4 0.89, TG 0.3, TG antibody less than 1 Interval history She is feeling good. She denies palpitations, insomnia, anxiety. She denies diarrhea. She has been taking levothyroxine 100 ug Patient reports been 100% adherent with her levothyroxine. 12/31/2024: TSH 0.40, free T4 1.26, TG 0.5, TG by LC MS less than 0.4, TG antibody 3 01/16/2025: Ultrasound of the neck shows normal-appearing bilateral nodes Physical exam General: sitting comfortably in no acute distress HEENT: normocephalic/atraumatic, moist oral mucosa Neck: supple, symmetrical, Cardiac: normal heart sounds Pulm: normal breath sounds B/L, no added breath sounds Abd: not distended, no tenderness Extremities: no edema, no signs of myxedema Laboratory Tests 11/06/18 03/02/19 05/25/19 15:40 08:33 12:40 Free T4 1.43 1.29 TSH Thyroglobulin 0.8 H 3.5 H 0.4 H Thyroglobulin Antibody <1 <1 <1 11/21/19 10/27/20 01/26/22 13:54 10:08 14:57 Free T4 1.27 1.29 1.58 TSH 0.17 L < 0.01 L Thyroglobulin 0.9 H 0.8 H 0.6 H Thyroglobulin Antibody <1 <1 <1 04/14/23 07/14/23 14:22 08:31 Free T4 1.00 0.89 TSH 0.47 1.68 Thyroglobulin 0.6 H 0.3 H Thyroglobulin Antibody <1 <1 Laboratory Tests 12/31/24 09:36 TSH 0.40 Free T4 1.26 Thyroglobulin 0.5 L Thyroglobulin LC-MS/MS <0.4 Thyroglobulin Antibody 3 H US THYROID 01/16/25 CLINICAL INFORMATION: Thyroidectomy, history of thyroid CA. COMPARISON: 01/26/2022, 11/06/2020. TECHNIQUE: Linear transducer chin-scale and color Doppler examination with attention to the region of the thyroid. FINDINGS: THYROID BED: Prior thyroidectomy. No residual thyroid tissue demonstrated in the thyroid bed. No cystic or solid nodules demonstrated in the thyroid bed. RIGHT NECK SOFT TISSUES: Scattered architecturally normal nodes are present. The nodes show normal fatty hilus, normal cortical thickness, and no cystic change or calcification. No abnormal color flow. The largest nodes are as follows: Level 5B: 0.9 x 0.4 x 0.7 cm. Normal paulette architecture. No significant interval change. Level 5A: 2.0 x 0.5 x 1.1 cm. Normal paulette architecture. This is new from prior. Level 5B: 1.0 x 0.6 x 1.0 cm. Normal paulette architecture. This is new from prior. LEFT NECK SOFT TISSUES: Scattered architecturally normal nodes are present. The nodes show normal fatty hilus, normal cortical thickness, and no cystic change or calcification. No abnormal color flow. The largest nodes are as follows: Level 2: 1.2 x 0.5 x 0.9 cm. There is no definite fatty hilum seen. No significant interval change. Level 2: 1.1 x 0.5 x 0.7 cm. There is no definite fatty hilum seen. No significant interval change. Level 2: 0.7 x 0.2 x 0.6 cm. There is no definite fatty hilum seen. No significant interval change. US/US soft tiss head and/or neck IMPRESSION: 1. No abnormality in the thyroid bed. 2. Multiple bilateral small cervical lymph nodes identified, quite similar in appearance to the prior examination from 2021, and consistent with reactive etiology. Stable appearance of left level 2 lymph nodes as discussed. None of these are significantly concerning in appearance. Electronically signed by: Teo Bravo MD 01/16/2025 12:05 PM EDT RP US SOFT TISSUE NECK 01/26/22 CLINICAL INFORMATION: Nontoxic multinodular goiter. COMPARISON: None TECHNIQUE: Ultrasound of the neck soft tissues is performed with high- frequency chin-scale imaging and color Doppler. FINDINGS: THYROID BED: Prior thyroidectomy. No residual thyroid tissue demonstrated in the thyroid bed. No cystic or solid nodules demonstrated in the thyroid bed. RIGHT NECK SOFT TISSUES: Scattered architecturally normal nodes are present. The nodes show normal fatty hilus, normal cortical thickness, and no cystic change or calcification. No abnormal color flow. The largest nodes are as follows: Level 1B: 0.4 x 0.4 x 0.7 cm. Normal paulette architecture. Level 5A: 0.7 x 0.2 x 0.4 cm. There is no definite fatty hilum seen, but otherwise normal morphology. This is similar to previous. LEFT NECK SOFT TISSUES: Scattered architecturally normal nodes are present. The nodes show normal fatty hilus, normal cortical thickness, and no cystic change or calcification. No abnormal color flow. The largest nodes are as follows: Level 1B: 1.2 x 0.5 x 0.9 cm. Normal paulette architecture. Level 3: 1 x 0.5 x 0.6 cm. There is no definite fatty hilum seen. This is similar to the previous. US/US soft tiss head and/or neck IMPRESSION: 1. Multiple small bilateral cervical lymph nodes are identified. None of these are significantly concerning in appearance. 2. If clinically indicated further evaluation of the neck soft tissues and nodes may be performed with CT soft tissue neck with intravenous contrast. US SOFT TISSUE NECK 11/06/20 CLINICAL INFORMATION: Vitamin D deficiency, unspecified. History of papillary thyroid carcinoma with recurrence. COMPARISON: Ultrasound soft tissue neck dated 08/01/2018 and 10/24/2017. TECHNIQUE: Ultrasound of the neck soft tissues is performed with high- frequency chin-scale imaging and color Doppler. FINDINGS: THYROID BED: Prior thyroidectomy. No residual thyroid tissue demonstrated in the thyroid bed. No cystic or solid nodules demonstrated in the thyroid bed. RIGHT NECK SOFT TISSUES: Scattered architecturally normal nodes are present. The nodes show normal fatty hilus, normal cortical thickness, and no cystic change or calcification. No abnormal color flow. There is one right cervical lymph node.: Level 5B: 0.6 x 0.3 x 0.6 cm. New. Normal paulette architecture. LEFT NECK SOFT TISSUES: Scattered architecturally normal nodes are present. The nodes show normal fatty hilus, normal cortical thickness, and no cystic change or calcification. No abnormal color flow. There are 2 left cervical lymph nodes.: Level 3: 1 x 0.4 x 0.8 cm. This measured 1 x 0.4 x 0.6 cm December 2019. Normal paulette architecture. Level 3: 0.6 x 0.3 x 0.5 cm. New. Normal paulette architecture. US/US soft tiss head and/or neck IMPRESSION: Small bilateral cervical lymph nodes. Neck US 10/24/17 Status post bilateral thyroidectomy. There are 2 normal-sized lymph nodes in the left neck, submandibular region, measuring 0.9 x 0.4 x 0.6 cm and 0.6 x 0.3 x 0.5 cm. Neck US 08/01/18 No residual thyroid tissue is seen. There are some small lymph nodes present, 1 in the left submandibular area measuring 7 x 4 x 7 mm (previously 6 x 3 x 5 mm) and 1 in the left parotid region measuring 8 x 6 x 7 mm. It is a bit difficult to compare the current study with the previous exam as it does not appear that the parotid area was interrogated but 2 lymph nodes were measured at the time of the prior exam with the second node measuring 9 x 4 x 6 mm. No other nodes or masses are seen. NECK US 12/11/2019 RIGHT NECK SOFT TISSUES: Right neck soft tissues and nodes are as follows: Level 2: 0.8 x 0.4 x 0.6. Normal paulette architecture. LEFT NECK SOFT TISSUES: Left neck soft tissues and nodes are as follows: Level 3: 1 x 0.4 x 0.6. Normal paulette architecture. The previously identified lymph nodes in the left submandibular and parotid regions on July 2018 are not appreciated on the current exam. [facility] Medical History (Updated 11/20/21 @ 10:36 by [facility] Vitamin D deficiency Post-surgical hypothyroidism Primary thyroid cancer Surgical History H/O radioactive iodine thyroid ablation Hx of total thyroidectomy History of radical neck dissection Family History Father No problems noted. Mother No problems noted. Paternal Grandmother Thyroid cancer Social History Household Members: Family and Children Alcohol intake: current Alcohol intake frequency: does not drink Patient Tobacco Use Status: Never used Tobacco Physical Exam Vital Signs: BMI result Body Mass Index 29.2 Assessment & Plan Assessment & Plan (1) Primary thyroid cancer: Code(s): C73 - Malignant neoplasm of thyroid gland Category: Medical Plan: 54-year-old female coming in today for follow up of history of PTC status post total thyroidectomy 2005 with pathology showing multifocal PTC largest tumor 1.6 X1.5 X1.2 cm, AJCC stage I T1 N1b M0, no further details given of pathology, can not determine VIDA initial risk of recurrence, status post 102 mCi of [place] 12/08/2005, with a recurrence in neck lymph node in 2008 with positive lymph node in level 2 and 3. status post 2nd surgery for recurrent PTC management , and then another neck dissection 10/03/2013 with central compartment and left lateral neck selective dissection 8 of 22 lymph nodes were positive for cancer, with postsurgical hypothyroidism, now coming in for follow up. Based on her TG levels which have remained stable, and trended down from 0.6 in 2021 to 0.3 in 2023, more recently labs from December 2024 again showed TG is at 0.5, with TG antibody climbing up to 3, she probably has small volume non progressive disease. At this point we will keep an eye on her thyroglobulin and thyroglobulin antibody levels. Last neck ultrasound January 2025 showed normal-appearing bilateral lymph nodes. We should try to keep her TSH level closer to 0.5. Most recent TSH from December 2024 at 0.4, this is appropriate for her. Plan: -continue levothyroxine 100 mcg daily -ordered TSH, free T4, TG and TG antibody levels to be done in 6 months prior to follow up (2) Post-surgical hypothyroidism: Code(s): E89.0 - Postprocedural hypothyroidism Category: Medical Plan: We should try to keep her TSH level closer to 0.5. Most recent TSH from December 2024 at 0.4, this is appropriate for her. Plan: -continue levothyroxine 100 mcg daily -ordered TSH, free T4, TG and TG antibody levels to be done in 6 months prior to follow up Plan I spent 30 minutes in reviewing the record, seeing the patient and documenting in the medical record. Orders: Orders 2 Free T4 (Free Thyroxine) 08/19/25 C73 - Malignant neoplasm of thyroid gland, E89.0 - Postprocedural hypothyroidism Thyroglobulin 08/19/25 C73 - Malignant neoplasm of thyroid gland, E89.0 - Postprocedural hypothyroidism Thyroid Stimulating Hormone 08/19/25 C73 - Malignant neoplasm of thyroid gland, E89.0 - Postprocedural hypothyroidism Thyroglobulin Antibodies 08/19/25 C73 - Malignant neoplasm of thyroid gland, E89.0 - Postprocedural hypothyroidism Thyroglobulin Tumor Marker 08/19/25 C73 - Malignant neoplasm of thyroid gland, E89.0 - Postprocedural hypothyroidism Medications: Refilled 2 levothyroxine 100 mcg PO DAILY 30 tabs 10RF Patient Instructions: Continue levothyroxine 100 mcg daily Do thyroid blood work a week or 2 prior to next appointment with me in September 2025 Follow up in September 2025 Coding Level of Care Code Est Pt Level 4 (10334) Complex EM visit Add On G2211 Diagnoses Primary thyroid cancer C73 Post-surgical hypothyroidism E89.0 Time Spent (min) 30
[2025-04-01 08:26] VITALS: BP 126/86; PULSE 73; O2SAT 97; BMI 29.2
== END 2025-04-01 08:40 | disposition home or self-care (01) ==
LOC: HO.ENCR 08:23
PROVIDERS: PCP Internal Medicine; Visit Provider Student in an Organized Health Care Education/Training Program
DX: C73 Malignant neoplasm of thyroid gland (principal); E89.0 Postprocedural hypothyroidism
CPT/HCPCS: 99214

== ENCOUNTER → 2025-04-01 08:23 | Outpatient (BNVA) | payer MEDICAID, SELFPAY | PROVIDERS: PCP Internal Medicine; Visit Provider Student in an Organized Health Care Education/Training Program | DX: E89.0 Postprocedural hypothyroidism (principal); Z85.850 Personal history of malignant neoplasm of thyroid | CPT/HCPCS: 99212 ==